=== PATIENT | male | born 1965 | race Caucasian/White ===

== ENCOUNTER 2020-10-06 12:41 | Inpatient (IN) | payer SELFPAY ==
[~2020-10-06] VITALS: Ht 175.3 cm; Wt 92.1 kg
[~2020-10-06 12:41] MED LIST: CYCL10 PO; Esgic Tablet1 EACH PO
[2020-10-06 13:05] LABS: Hematocrit 48.2 % (37.0-53.0); Hemoglobin 16.3 g/dL (13.5-17.5); Mean Corpuscular HGB 29.6 pg (26.0-34.0); Mean Corpuscular HGB Conc 33.8 g/dL (31.5-36.5); Mean Corpuscular Volume 88 fL (80-100); Mean Platelet Volume 9.7 fL (9.1-12.4); Platelet Count 211 K/mm3 (150-400); RDW Coefficient Variation 12.1 % (11.7-14.2); RDW Standard Deviation 39.2 fL (35.1-46.3); White Blood Cell Count 7.23 K/mm3 (4.00-11.30)
[2020-10-06 13:10] LABS: Calcium, Ionized (POC) 1.15 mmol/L (1.10-1.46); Chloride (POC) 105 mmol/L (98-108); Creatinine (POC) 0.9 mg/dL (0.8-1.3); Glucose (ISTAT POC) 110 mg/dL (70-99); Potassium (POC) 3.9 mmol/L (3.5-5.5); Sodium (POC) 141 mmol/L (135-148); Total CO2 (POC) 28 mmol/L (21-32)
[2020-10-06 13:21] LABS: International Normalized Ratio 1.03
[2020-10-06 13:27] LABS: Alanine Aminotransfer (ALT/SGP 36 U/L (12-78); Albumin, Blood 4.3 g/dL (3.4-5.0); Alk Phos 91 U/L (50-136); Anion Gap 7 mmol/L (6-16); Aspartate Aminotrans (AST/SGOT 27 U/L (12-37); Blood Urea Nitrogen 15 mg/dL (8-24); Bun/Creatinine Ratio 16.9 (12.0-20.0); CHOL/HDL RATIO 6.3; CO2, Blood 27 mmol/L (21-32); Calcium, Blood 9.3 mg/dL (8.5-10.1); Chloride, Blood 107 mmol/L (98-108); Cholesterol 239 mg/dL (50-200); Creatinine, Blood 0.89 mg/dL (0.60-1.20); Globulin, Blood 4.1 g/dL (2.2-4.0); Glomerular Filtration Rate >60 (60-); Glucose, Blood 106 mg/dL (70-99); HDL Cholesterol 38 mg/dL (>39); LDL/HDL RATIO 4.3; Low Density Lipoprotein Chol 164 mg/dL (0-110); Magnesium, Blood 2.3 mg/dL (1.6-2.4); Potassium, Blood 3.8 mmol/L (3.5-5.5); Sodium, Blood 141 mmol/L (136-145); Total Protein, Blood 8.4 g/dL (6.4-8.2); Triglycerides 186 mg/dL (30-160); Troponin I 0.027 ng/mL (0.000-0.040); Very Low Density Lipoprot Chol 37 mg/dL (6-32)
[2020-10-06 14:23] LABS: Influenza A, PCR NEGATIVE (NEGATIVE); Influenza B, PCR NEGATIVE (NEGATIVE); Resp Syncytial Virus, PCR NEGATIVE (NEGATIVE); SARS-Cov-2 (COVID-19) PCR, MMC NEGATIVE (NEGATIVE)
--- NOTE | 2020-10-06 16:50 | NUR ---
SHIFT SUMMARY PT ADMITTED FROM [facility] TECHNICIAN POST PCI TO MID PROX RCA. PT HAD CP APPROX 1 HR INCLUSION INTERN OF ER. PT ARRIVES A&OX4. FOLLOWS COMMANDS. DENIES CHEST PAIN. STATES HE IS FEELING MUCH BETTER. LUNGS CLEAR. VSS. EKG DONE AND SHOWN TO DEPENDENCY CASE MANAGER. RIGHT GROIN ACCESS c PERCLOSURE DEVICE. TEGADERM CHG IN PLACE. DRESSING C/D/I. NO ECCHYMOSIS, SWELLING OR PAIN NOTED. PERIPHERAL PULSES PAL. INSTRUCTED PT TO KEEP LEG STRAIGHT FOR MINIMUN OF 2 HOURS. WILL CONTINUE TO MONITOR.
[2020-10-07 03:31] LABS: BASOPHILS ABSOLUTE AUTO 0.04 K/mm3 (0.00-0.23); BASOPHILS PERCENT AUTO 0 % (0-2); EOSINOPHILS ABSOLUTE AUTO 0.06 K/mm3 (0.00-0.68); EOSINOPHILS PERCENT AUTO 1 % (0-6); Hematocrit 42.6 % (37.0-53.0); Hemoglobin 14.7 g/dL (13.5-17.5); IMMATURE GRAN ABSOLUTE AUTO 0.05 K/mm3 (0.00-0.10); IMMATURE GRAN PERCENT AUTO 1 % (0-1); LYMPHOCYTES ABSOLUTE AUTO 2.66 K/mm3 (0.84-5.20); LYMPHOCYTES PERCENT AUTO 28 % (21-46); MONOCYTES ABSOLUTE AUTO 0.83 K/mm3 (0.16-1.47); MONOCYTES PERCENT AUTO 9 % (4-13); Mean Corpuscular HGB 30.1 pg (26.0-34.0); Mean Corpuscular HGB Conc 34.5 g/dL (31.5-36.5); Mean Corpuscular Volume 87 fL (80-100); Mean Platelet Volume 10.1 fL (9.1-12.4); NEUTROPHILS ABSOLUTE AUTO 5.91 K/mm3 (1.96-9.15); NEUTROPHILS PERCENT AUTO 62 % (41-73); Platelet Count 208 K/mm3 (150-400); RDW Coefficient Variation 12.5 % (11.7-14.2); RDW Standard Deviation 39.8 fL (35.1-46.3); Red Blood Cell Count 4.89 M/mm3 (4.30-5.90); White Blood Cell Count 9.55 K/mm3 (4.00-11.30)
[2020-10-07 03:48] LABS: Alanine Aminotransfer (ALT/SGP 46 U/L (12-78); Albumin, Blood 3.6 g/dL (3.4-5.0); Albumin/Globulin Ratio 0.9 (0.8-1.8); Alk Phos 73 U/L (50-136); Anion Gap 7 mmol/L (6-16); Aspartate Aminotrans (AST/SGOT 138 U/L (12-37); Bilirubin, Total 0.9 mg/dL (0.1-1.0); Blood Urea Nitrogen 14 mg/dL (8-24); Bun/Creatinine Ratio 16.6 (12.0-20.0); CO2, Blood 25 mmol/L (21-32); Calcium, Blood 8.9 mg/dL (8.5-10.1); Chloride, Blood 108 mmol/L (98-108); Creatinine, Blood 0.84 mg/dL (0.60-1.20); Globulin, Blood 3.8 g/dL (2.2-4.0); Glomerular Filtration Rate >60 (60-); Glucose, Blood 96 mg/dL (70-99); Potassium, Blood 3.9 mmol/L (3.5-5.5); Sodium, Blood 140 mmol/L (136-145); Total Protein, Blood 7.4 g/dL (6.4-8.2)
--- NOTE | 2020-10-07 05:03 | NUR ---
SHIFT SUMMARY PATIENT SLEPT WELL THROUGH NIGHT. WOOL PRESSER SITE HAS MAINTAINED WELL TRHU NIGHT. NO C/O PAIN. ASSESSMENT IS CHARTED. VSS. WILL CONTINUE TO MONITOR.
--- NOTE | 2020-10-07 07:35 | NUR ---
0700: RECEIVED REPORT FROM MORA PALMA, MET WITH PATIENT, WOKE HIM UP. HE DENIES ANY COMPLAINTS. 0725: BACK IN ROOM HE IS HAVING HIS ECHO AT THIS TIME.
--- NOTE | 2020-10-07 07:54 | NUR ---
LUANN IS DOING WELL THIS MORNING. ALL PULSES PRESENT. STATES SOME RESIDUAL TIGHTNESS ACROSS THE FRONT OF HIS CHEST. VITAL SIGNS STABLE, RHYTHM NORMAL, INDEPENDENT IN HIS ROOM. HAVING BREAKFAST. SALINE LOCK IN LEFT HAND WRAPPED IN [place] HE CONTINUES TO BUMP IT AND IT GIVES HIM DISCOMFORT. RIGHT AC SALINE LOCK WELL. NO EDEMA, BOWEL TONES ACTIVE, LUNGS CLEAR.
--- NOTE | 2020-10-07 12:55 | NUR ---
PT JUST RETURNED FROM THE SHOWER. HE IS FEELING GOOD, HE IS NOT COMPLAINING OF ANY PAIN. HE CONTINUES TO HAVE THE TIGHTNESS ACROSS HIS CHEST. HE IS INDEPENDENT IN HIS ROOM AND IS NOT NEEDING ANY ASSISTANCE. HE IS PLEASANT AND CONTINUES TO GIGGLE.
--- NOTE | 2020-10-07 14:06 | NUR ---
CHECKED ON PATIENT, HE IS QUIETLY NAPPING. VSS
--- NOTE | 2020-10-07 18:05 | NUR ---
"LUANN" HE GOES BY HAS DONE WELL TODAY. HE HAS BEEN INDEPENDENT IN THE ROOM HE HAS ASKED QUESTIONS WHEN NEEDED AND HAS DENIED ANY ADDITIONAL CHEST PAIN, SHORTNESS OF BREATH OR DIAPHORESIS. HE HAS EATEN SOME TODAY, HIS APPETITE IS GOOD BUT HE HASN'T ENJOYED THE FOOD. HE IS TALKING OF LEARNING A NEW HEART HEALTHY DIET. HE HAS HAD ALL MEDICATIONS EXPLAINED TO HIM AND POSSIBLE SIDE EFFECTS. HE HAS HAD HIS SIGNIFICANT OTHER HERE VISITING WITH HIM FOR THE AFTERNOON. MADE AWARE OF HIS LATEST TROPONIN AND SAID WE DO NOT NEED TO ORDER ANY FURTHER. HAS STATED THAT HE WILL BE HANDING OFF TO IN THE AM AT 0700, BUT HAS BEEN UNABLE TO REACH HIM IS TRAVELING.
--- NOTE | 2020-10-08 05:51 | NUR ---
SHIFT SUMMARY PATIENT SLEPT WELL THROUGH NIGHT. NO C/O PAIN. NO COMPLICATIONS FROM CCL SITE. C/O SOME HEARTBURN EARLIER, RELIEVED IMMEDIATELY WITH REPOSITIONING. ASSESSMENT IS CHARTED. VSS. WILL CONTINUE TO MONITOR.
[2020-10-08] MEDS ORDERED: Lisinopril2.5 MG PO (09:49)
[2020-10-08] MEDS ORDERED: ASPI81CH PO (09:49)
[2020-10-08] MEDS ORDERED: CLOP75 PO (09:49)
[2020-10-08] MEDS ORDERED: ATOR80 PO (09:49)
[2020-10-08] MEDS ORDERED: METO25 PO (09:51)
--- NOTE | 2020-10-08 11:00 | NUR ---
PT INDEP IN ROOM. DENIES CP, SOB, N/V AND DIZZINESS. SEE ASSESSMENT. PT IS DISCHARGED WITH DISCHARGE INSTRUCTIONS GONE OVER WITH PT AND S.O. MEDS FAXED TO [facility]. STENT CARD GIVEN. F/U APPT WILL BE ARRANGED BY AND THEY WILL CALL THE PT. PT AMBULATES SELF WITHOUT DIFFICULTY.
== END 2020-10-08 11:00 | disposition home or self-care (01) | DRG 247 ==
LOC: ER 12:41 → ICUE 12:50 → ICUW 12:50 → ICUE 14:28
PROVIDERS: Emergency Medicine; ADMIT Internal Medicine
PROC: 027034Z Dilation of Coronary Artery, One Artery with Drug-eluting Intraluminal Device, Percutaneous Approach (ICD-10-PCS; principal; 2020-10-06)
PROC: 4A023N7 Measurement of Cardiac Sampling and Pressure, Left Heart, Percutaneous Approach (ICD-10-PCS; 2020-10-06)
PROC: B2111ZZ Fluoroscopy of Multiple Coronary Arteries using Low Osmolar Contrast (ICD-10-PCS; 2020-10-06)
PROC: B240ZZ3 Ultrasonography of Single Coronary Artery, Intravascular (ICD-10-PCS; 2020-10-06)
DX: I21.19 ST elevation (STEMI) myocardial infarction involving other coronary artery of inferior wall (principal); I47.2 Ventricular tachycardia; G43.909 Migraine, unspecified, not intractable, without status migrainosus; Z20.822 Contact with and (suspected) exposure to COVID-19
CPT/HCPCS: 0241U; 36415; 76937; 80047; 80053; 80061; 82947; 83735; 84484; 85014; 85025; 85027; 85347; 85610; 85730; 86850; 86900; 86901; 92978; 93005; 93010; 93306; 93454; 96374-59; 99152; 99153; 99285-25; A9270; C1725; C1753; C1760; C1769; C1874; C1887; C1894; C9606; J1644; J2250; J2270; J2405; J3010; J7030; J7050; Q9967

== ENCOUNTER 2022-06-17 06:05 | Day surgery (SDC) | payer SELFPAY ==
[~2022-06-17] VITALS: Ht 178 cm; Wt 99.4 kg
[~2022-06-17 06:05] MED LIST changes: +ASPI81CH PO; +ATOR80 PO; +CLOP75 PO; +Lisinopril2.5 MG PO; +METO25 PO
[2022-06-17] MEDS ORDERED: Cyclobenzaprine5 MG PO (06:31)
--- NOTE | 2022-06-17 07:02 | NUR ---
Ambulatory in Day Surgery History, Chart, Medications and Allergies reviewed before start of procedure.Patient confirms NPO status and agrees with scheduled surgery. Patient reports completing Chlorhexadine shower X2 prior to admission to hospital.Surgical site prepped with 2% Chlorhexidine cloth wipe. AT BEDSIDE.
--- NOTE | 2022-06-17 10:23 | NUR ---
Discharge instructions reviewed with patient. Patient verbalizes understanding. Copy given to patient to take home. Discharged via wheelchair to private car for ride home. Dressing to procedure site clean, dry, intact with no visible drainage, swelling, erythema or bruising noted.
== END 2022-06-17 10:15 | disposition home or self-care (01) ==
LOC: ORSCMMR 06:05 → ORD 07:30 → ORSCMMR 07:30
PROVIDERS: Surgery
PROC: 0YU50JZ Supplement Right Inguinal Region with Synthetic Substitute, Open Approach (ICD-10-PCS; principal; 2022-06-17 07:30)
DX: K40.90 Unilateral inguinal hernia, without obstruction or gangrene, not specified as recurrent (principal); I10 Essential (primary) hypertension; G47.33 Obstructive sleep apnea (adult) (pediatric); I25.2 Old myocardial infarction; Z79.899 Other long term (current) drug therapy; Z79.82 Long term (current) use of aspirin
CPT/HCPCS: C1781; J0690; J1100; J2250; J2405; J2704; J2795; J3010; J7120